=== PATIENT | male | born 1980 | race Caucasian/White ===

== ENCOUNTER 2020-01-21 10:12 | Outpatient (CLI) | payer OTHER, SELFPAY ==
--- NOTE | 2020-01-21 11:00 | NEURO_ITS ---
Patient Number: [id number] Impression: # Complains of left upper extremity pain and numbness. # Severe left Carpal Tunnel Syndrome. # Left ulnar neuropathy around the elbow. # Normal needle/EMG exam. Nerve Conduction Studies Anti Sensory Summary Table Stim Site NR Peak (ms) P-T Amp (?V) Site1 Site2 Delta-P (ms) Dist (cm) Ulisses (m/s) Left Median Anti Sensory (2-3nd Digit) Wrist 4.9 18.8 Wrist 2-3nd Digit 4.9 14.0 29 Wrist 5.7 12.3 Wrist 2-3nd Digit 4.9 14.0 29 Right Median Anti Sensory (2-3nd Digit) Wrist 3.1 46.5 Wrist 2-3nd Digit 3.1 14.0 45 Wrist 3.0 44.7 Wrist 2-3nd Digit 3.1 14.0 45 Left Radial Anti Sensory (Base 1st Digit) Wrist 2.1 24.1 Wrist Base 1st Digit 2.1 0.0 Right Radial Anti Sensory (Base 1st Digit) Wrist 2.8 14.0 Wrist Base 1st Digit 2.8 0.0 Left Ulnar Anti Sensory (5th Digit) Wrist 3.2 38.9 Wrist 5th Digit 3.2 14.0 44 Right Ulnar Anti Sensory (5th Digit) Wrist 2.9 46.7 Wrist 5th Digit 2.9 14.0 48 Motor Summary Table Stim Site NR Onset (ms) O-P Amp (mV) Site1 Site2 Delta-0 (ms) Dist (cm) Ulisses (m/s) Left Median Motor (Abd Poll Brev) Wrist 6.1 3.0 Elbow Wrist 5.7 30.0 53 Elbow 11.8 2.9 Right Median Motor (Abd Poll Brev) Wrist 3.8 4.2 Elbow Wrist 5.9 31.0 53 Elbow 9.7 3.7 Left Ulnar Motor (Abd Dig Minimi) Wrist 3.0 4.4 A Elbow Wrist 6.8 32.0 47 A Elbow 9.8 3.8 B Elbow Wrist 5.7 26.0 46 B Elbow 8.7 3.2 Right Ulnar Motor (Abd Dig Minimi) Wrist 2.8 5.0 A Elbow Wrist 5.6 32.0 57 A Elbow 8.4 3.9 F Wave Studies NR F-Lat (ms) L-R F-Lat (ms) Left Median (Mrkrs) (Abd Poll Brev) 33.39 1.35 Right Median (Mrkrs) (Abd Poll Brev) 32.05 1.35 Left Ulnar (Mrkrs) (Abd Dig Min) 31.61 2.32 Right Ulnar (Mrkrs) (Abd Dig Min) 29.29 2.32 EMG Side Muscle Nerve Root Ins Act Fibs Amp Dur Recrt Comment Right 1stDorInt Ulnar C8-T1 Nml Nml Nml Nml Nml Right Ext Indicis Radial (Post Int) C7-8 Nml Nml Nml Nml Nml Right Ext Digitorum Radial (Post Int) C7-8 Nml Nml Nml Nml Nml Right BrachioRad Radial C5-6 Nml Nml Nml Nml Nml Right PronatorTeres Median C6-7 Nml Nml Nml Nml Nml Right Abd Poll Brev Median C8-T1 Nml Nml Nml Nml Nml Left 1stDorInt Ulnar C8-T1 Nml Nml Nml Nml Nml Left Ext Indicis Radial (Post Int) C7-8 Nml Nml Nml Nml Nml Left Ext Digitorum Radial (Post Int) C7-8 Nml Nml Nml Nml Nml Left BrachioRad Radial C5-6 Nml Nml Nml Nml Nml Left PronatorTeres Median C6-7 Nml Nml Nml Nml Nml Left Abd Poll Brev Median C8-T1 Nml Nml Nml Nml Nml MTDD
== END 2020-01-21 10:13 | disposition home or self-care (01) ==
PROVIDERS: PCP Family Medicine; Visit Provider Family Medicine
DX: R20.2 Paresthesia of skin (principal); G56.02 Carpal tunnel syndrome, left upper limb; G56.22 Lesion of ulnar nerve, left upper limb
CPT/HCPCS: 95886; 95911

== ENCOUNTER 2020-08-23 00:37 | Outpatient (CLI) | payer OTHER, SELFPAY ==
[2020-08-23 16:30] LABS: SARS-CoV-2 RNA PCR Negative
== END 2020-08-23 00:38 | disposition home or self-care (01) ==
LOC: ANHCOVIDDT 00:37
PROVIDERS: PCP Family Medicine; Visit Provider Orthopaedic Surgery
DX: Z01.812 Encounter for preprocedural laboratory examination (principal); Z20.828 Contact with and (suspected) exposure to other viral communicable diseases
CPT/HCPCS: 87635; C9803; U0003

== ENCOUNTER 2020-08-25 00:36 | Day surgery (SDC) | payer OTHER, SELFPAY ==
[2020-08-11 10:15] VITALS: BMI 30.5
--- NOTE | 2020-08-23 10:37 | PM.IMHP ---
H&P: HPI History of Present Illness Date/Time: 08/23/20 10:37 Chief complaint: Left Carpal Tunnel Syndrome Narrative: Isael Trejo is a 40 year old male Who presents with a chronic ongoing history of numbness and tingling in the median nerve distribution left hand. Patient states he has problems with gripping or grasping for long period since hand frequently falls asleep. The patient states the problem is worsening with time, he reports nocturnal awakening and has trouble manipulating fine objects. Most the numbness and tingling is noted to be in the median nerve distribution although an EMG study done recently, earlier this year showed severe left carpal tunnel syndrome with left ulnar neuropathy across the elbow. His main symptoms are in the median nerve distribution he is where the above findings and his discussed treatment options in detail with Dr. Osman, he has failed conservative measures he would now like to proceed with a left carpal tunnel release. Review of Systems Review of Systems: All systems reviewed & are unremarkable except as noted in HPI and below PMFSH Social History Social History Smoking status: Former smoker Additional smoking assessment comments: OFF AND ON - NEVER A DAILY SMOKER Spiritual care concerns: No Meds Home Medications and Allergies Home Medications Medication Instructions Recorded Confirmed Type clonazepam 2 mg PO PRN PRN 08/11/20 08/11/20 History dextroamphetamine-amphetamine 20 mg PO PRN PRN 08/11/20 08/11/20 History propranolol 30 mg PO BID 08/11/20 08/11/20 History quetiapine 75 mg PO TID 08/11/20 08/11/20 History quetiapine 200 mg PO HS 08/11/20 08/11/20 History topiramate 100 mg PO BID 08/11/20 08/11/20 History Allergies Allergy/AdvReac Type Severity Reaction Status Date / Time No Known Allergies Allergy Verified 08/11/20 10:14 Exam Narrative: Exam Narrative: The patient is well-developed well-nourished male no acute distress. He is alert and oriented x3. Normal mood and affect. Hearing and vision intact. HEENT exam within normal limits. Heart regular rate rhythm. Lungs clear auscultation. Abdomen benign. Extremities showed the patient's left hand have full range of motion hand wrist and fingers he has decreased sensation light touch in the median nerve distribution subjectively with a positive Tinel's positive carpal tunnel compression test. Strength is 5 5 except limited by his symptoms. EMG study is as above. Skin is intact without rashes or lesions. Central nervous system exam within normal limits. Assessment and Plan Additional Plan By EMG and exam the patient is noted have severe left carpal tunnel syndrome his main symptoms are in the left median nerve distribution, the EMG study also showed some left ulnar neuropathy across the elbow. The patient has discussed risks benefits limitations and alternatives to surgery in great detail Dr. Osman he is now ready to proceed with a left carpal tunnel release. the patient is scheduled to go surgery 08/25/2020 at [facility] with Dr. Osman he voiced understanding and agrees with the above plan.
--- NOTE | 2020-08-24 08:35 | WPDANESEPPF ---
Anes - Initial Pre Proc Eval Procedure: Operation Date: 08/25/20 09:30 Proposed Procedures p Left Carpal Tunnel Release - Didier Osman MD Date/Time: 08/24/20 08:35 Surgeon: Didier Osman MD Pre Op Diagnosis: Left Carpal Tunnel Syndrome Patient Data Age: 40 Gender: M Height: 1.85 m Weight: 105 kg Allergies Allergy/AdvReac Type Severity Reaction Status Date / Time No Known Allergies Allergy Verified 08/25/20 07:29 Home Medications Medication Instructions Recorded Confirmed Type clonazepam 2 mg PO PRN PRN 08/11/20 08/11/20 History dextroamphetamine-amphetamine 20 mg PO PRN PRN 08/11/20 08/25/20 History propranolol 30 mg PO BID 08/11/20 08/25/20 History quetiapine 75 mg PO TID 08/11/20 08/25/20 History quetiapine 200 mg PO HS 08/11/20 08/25/20 History topiramate 100 mg PO BID 08/11/20 08/25/20 History Patient hx anesthesia problems: none Family hx anesthesia problems: none PMFSH Past Medical History Medical History (Updated 08/24/20 @ 08:35 by Isael Maddox DO) ADD (attention deficit disorder) Bipolar disorder Social History Social History Smoking status: Former smoker Additional smoking assessment comments: OFF AND ON - NEVER A DAILY SMOKER Living arrangements: with family Spiritual care concerns: No Anes - Eval Final PreProcedure Day of Procedure 08/24/20 08:35 Patient weight: obese Heart: regular rate and rhythm Lungs: clear to auscultation and normal air movement Airway: Mallampati scale class II Neurological: alert and oriented Last oral intake: >/= 8 hours ASA classification: II Emergent: no Anesthetic plan: proceed Anesthesia type and monitoring: general GIVS and standard monitoring Informed Consent: The patient's anesthetic plan and its attendant risks and benefits were discussed with the patient/family/POA. Questions were solicited and answers provided to the satisfaction of the patient/family/POA.
--- NOTE | 2020-08-25 07:22 | WPDHPUPDATE1 ---
History and Physical Update Update Date/Time: 08/25/20 07:22 History and Physical has been reviewed, including an updated exam of the patient. There are NO changes in the patient's condition. Risks, benefits, and alternatives have been discussed and questions answered. Patient agrees to proceed with procedure.
[2020-08-25] MEDS: LACTATED RINGERS 1,000 ML 30 ML IV CONT (07:45)
[2020-08-25] MEDS: ACETAMINOPHEN 500 MG TABLET 1000 MG PO (07:57)
[2020-08-25] MEDS: KETOROLAC 15 MG/ML VIAL (*BKC) IV PUSH (07:58)
[2020-08-25 08:04] VITALS: BP 117/73; PULSE 67; RESP 16; TEMP 36.9; O2SAT 96
[2020-08-25] MEDS: ceFAZolin 2 GM/D5W 50 ML 2 GM/50 ML BAG IVPB (09:12)
--- NOTE | 2020-08-25 09:40 | P.OP_ITS ---
Procedure Note - Detailed Date of procedure: 08/25/20 Pre-op diagnosis: Left Carpal Tunnel Syndrome Post-op diagnosis: same Procedure performed: [Left] carpal tunnel release Description of procedure: After sterile prep and drape, I injected the area of intended incision with 10ml of 1% lidocaine. A longitudinal incision was made in line with the ulnar boarder of the third finger. Disection carried down to the fascia, the fascia split and the carpal ligament identified. The carpal ligament was released and the flexor retinaculum was released as well. The nerve was noted to be red purple in color and in continuity. The wound was ir rigated, hemostatis was obtained and closed with 3-0 prolene. Anesthesia: MAC Surgeon: Didier Osman MD Estimated blood loss (mL): 5 Drains: No Packing: No Pathology: none sent Complications: No immediate complications Condition: stable Disposition: same day
[2020-08-25 09:47] VITALS: BP 128/66; PULSE 63; RESP 10; O2SAT 94
[2020-08-25 10:15] VITALS: BP 123/74; PULSE 63; RESP 12
[2020-08-25 10:45] VITALS: BP 109/67; PULSE 61; RESP 12
== END 2020-08-25 11:00 | disposition home or self-care (01) ==
PROVIDERS: PCP Family Medicine; Visit Provider Orthopaedic Surgery
PROC: (CPT 64721; principal; 2020-08-25 09:30)
DX: G56.02 Carpal tunnel syndrome, left upper limb (principal); F98.8 Other specified behavioral and emotional disorders with onset usually occurring in childhood and adolescence; F31.9 Bipolar disorder, unspecified; Z87.891 Personal history of nicotine dependence; E66.9 Obesity, unspecified; Z68.30 Body mass index [BMI] 30.0-30.9, adult
CPT/HCPCS: 64721; A9270; J0690; J1885; J2250; J2405; J2704; J3010; J7120

== ENCOUNTER 2021-01-06 19:02 | Outpatient (CLI) | payer OTHER, SELFPAY ==
--- NOTE | ~2021-01-06 | XR_ITS ---
XR foot RT min 3V 01/06/2021 19:28 INDICATION: Cellulitis right second digit PROCEDURE: 4 views right foot COMPARISON: No prior studies for comparison. FINDINGS: Fracture, dislocation or subluxation is not identified. The soft tissues appear within norm al limits. No foreign bodies are identified. IMPRESSION: 1: NO ACUTE BONE OR JOINT ABNORMALITY IDENTIFIED. Reviewed, dictated and finalized at location A. [employer]
== END 2021-01-06 19:03 | disposition home or self-care (01) ==
PROVIDERS: PCP Family Medicine; Visit Provider Family Medicine
DX: L03.90 Cellulitis, unspecified (principal)
CPT/HCPCS: 73630